=== PATIENT | female | born 1985 | race Two or more races ===

== ENCOUNTER 2016-08-21 18:41 | Emergency (ER) | payer SELFPAY ==
[~2016-08-21] VITALS: Ht 172.7 cm; Wt 59.0 kg
[2016-08-21 18:42] VITALS: BP 126/82
== END 2016-08-21 19:47 | disposition home or self-care (01) ==
LOC: ER 18:42
DX: E16.2 Hypoglycemia, unspecified (principal); V43.52XA Car driver injured in collision with other type car in traffic accident, initial encounter; Y93.89 Activity, other specified; Y92.488 Other paved roadways as the place of occurrence of the external cause; Y99.8 Other external cause status
CPT/HCPCS: 82962; 99283; A4606; Z7610